=== PATIENT | female | born 1980 | race Hispanic/Latino ===

== ENCOUNTER 2017-11-25 15:28 | Inpatient (IN) | payer OTHER ==
[2017-11-25 17:38] LABS: ALT (SGPT) 28 U/L (8-55); AST (SGOT) 25 U/L (5-34); Alkaline Phosphatase 91 U/L (40-150); BUN (Urea Nitrogen) 20 mg/dL (7.0-18.7); Bilirubin, Total 0.4 mg/dL (0.2-1.2); Calc. Creatinine Clearance 0 mL/min (70-130); Calcium 7.7 mg/dL (7.8-10.44); Chloride 110 mmol/L (98-107); Estimated GFR-MDRD 68; Globulin 2.6 g/dL (2.4-3.5); Glucose 208 mg/dL (70-105); Potassium 4.3 mmol/L (3.5-5.1); Protein, Total 6.6 g/dL (6.0-8.3); Sodium 128 mmol/L (136-145)
[2017-11-25 17:39] LABS: Carbon Dioxide Less than 8 mmol/L (22-29)
[2017-11-25] MEDS ORDERED: HYDROcodone/Acetaminophen 5/325 mg Tablet PO PRN (18:04)
[2017-11-25] MEDS ORDERED: Sodium Chloride 0.9% 1,000 ML IV PRN ×4 (18:04)
[2017-11-25] MEDS ORDERED: Guaifenesin DM 100-10/5 ML UDCUP PO PRN (18:04)
[2017-11-25] MEDS ORDERED: NS 0.9% w/ 20 MEQ KCL 1,000 ML IV PRN ×2 (18:04)
[2017-11-25] MEDS ORDERED: D5 1/2 NS w/20 mEq KCL 1,000 ML ONE (18:04)
[2017-11-25] MEDS ORDERED: Bisacodyl 5 MG TAB PO PRN (18:04)
[2017-11-25] MEDS ORDERED: CCU Electrolyte Replacement 1 EACH IVPB SCH (18:04)
[2017-11-25] MEDS ORDERED: Calcium Carbonate 500 MG ChewTAB PO PRN (18:04)
[2017-11-25] MEDS ORDERED: Dextrose 5 %-0.45 % NaCl 1,000 ML IV PRN (18:04)
[2017-11-25] MEDS ORDERED: Ondansetron HCl/PF 4 MG/2 ML Vial IVP PRN (18:04)
[2017-11-25] MEDS ORDERED: Senokot S 8.6-50 MG TAB PO PRN (18:04)
[2017-11-25] MEDS ORDERED: Bisacodyl 10 MG SUPP PR PRN (18:04)
[2017-11-25] MEDS ORDERED: Magnesium Oxide 400 MG TAB PO PRN ×2 (18:18)
[2017-11-25] MEDS ORDERED: Magnesium 2 GM/NS 0.9% 100 ML 2 GM in Premix Bag 1 BAG IVPB PRN (18:18)
[2017-11-25] MEDS ORDERED: Potassium Chloride 20 MEQ TAB PO PRN (18:18)
[2017-11-25] MEDS ORDERED: CCU ELECTROLYTE REPLACEMENT PROTOCOL FS PRN (18:18)
[2017-11-25] MEDS ORDERED: Potassium Phosphate 12 MMOL in Sodium Chloride 0.9% 250 ML 250 ML IV PRN (18:18)
[2017-11-25] MEDS ORDERED: Potassium Phosphate 15 MMOL in Sodium Chloride 0.9% 250 ML 250 ML IV PRN (18:18)
[2017-11-25] MEDS ORDERED: Potassium Chloride 40 MEQ in Sodium Chloride 0.9% 250 ML 250 ML IVPB PRN (18:18)
[2017-11-25] MEDS ORDERED: Potassium Chloride 40 MEQ in Premix Bag 1 BAG IVPB PRN (18:18)
[2017-11-25] MEDS ORDERED: Potassium Phosphate 9 MMOL in Sodium Chloride 0.9% 100 ML IVPB PRN (18:18)
[2017-11-25 18:33] LABS: BHCG - Serum Negative (NEGATIVE); Pregs Control Background? CLEAR/WHITE (CLR/WHITE); Pregs Control Bar Appear? YES (CONTROL BAR)
[2017-11-25] MEDS ORDERED: PROVENTIL INHALER 6.7 G (200 INHALATIONS) INH PRN (18:52)
--- NOTE | 2017-11-25 19:31 | HP ---
DATE OF ADMISSION: 11/25/2017 PRIMARY CARE PHYSICIAN: Jaxon Centeno MD CHIEF COMPLAINT: Nausea, vomiting, dehydration. HISTORY OF PRESENT ILLNESS: Ms. Harris is a 37-year-old [facility] national, who presented to the ER with above-mentioned complaint. History is mainly obtained by the patient herself and electronic ia dical records have been reviewed. Case has been discussed with admitting ER physician. Ms. Harris reports that she has diabetes type 1 which is insulin-dependent and she is very compliant with her medications. For the last few days, she has been eating out and she has been having vomiti ng for the last 2-3 days. It did subside somewhat yesterday, but this morning she again vomited 3 ti mes. She does notice that she is very dehydrated and has been having excessive thirst and polyuria. She presented to [facility] for evaluation and was found to have evidence of diabeti c ketoacidosis and was transferred to our emergency room for further workup. She has received IV flu ids and has been started on insulin drip as per the ER report. The patient reports no history of similar symptoms in the past. She reports that she has never been diagnosed with her hospitalized with diabetic ketoacidosis. In the emergency room, her sodium is 128 , bicarbonate less than 8 and very high anion gap with a blood sugar of 208. Beta hydroxybutyrate le megan at 6.01. She will be admitted to [facility] for diabetic ketoacidosis. PAST MEDICAL HISTORY: Diabetes mellitus type 1 and asthma. PAST SURGICAL HISTORY: Sinus surgery. PSYCHIATRIC: None. 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 No history of drug, tobacco or alcohol abuse. FAMILY HISTORY: Diabetes mellitus in her grandmother. ALLERGIES: No known medication allergies. CURRENT MEDICATIONS: Levemir and Humulin, unknown dosages and Symbicort b.i.d. REVIEW OF SYSTEMS: A 12-point review of systems is done. It is negative except for those mentioned in the history and physical. LABORATORY DATA: Sodium 128, chloride 110, bicarbonate less than 8, BUN 20, creatinine 0.93, blood s ugar 208. Serum test negative. Beta hydroxybutyrate 6.01. PHYSICAL EXAMINATION: VITAL SIGNS: Stable. Heart rate 113. GENERAL: No acute distress, awake, alert, oriented x3. The patient does have some halting speech, b ut I think it is likely due to the language barrier. She does speak Japanese proficiently albeit a li ttle bit slow. HEENT: Mucous membranes are slightly dry. No oropharyngeal exudate or erythema. Head is normocepha lic, atraumatic. Pupils equal, reactive to light and accommodation. Extraocular movement intact. NECK: Supple without any lymphadenopathy, JVD or bruit. CHEST: Clear to auscultation without any wheezing, rales or rhonchi. Rate and rhythm is regular wit hout any murmur, rubs or gallops. ABDOMEN: Soft, nontender, nondistended with positive bowel sounds. EXTREMITIES: Free of any cyanosis, clubbing, or edema. NEUROLOGIC: Nonfocal. SKIN: Free of any rashes or bruises. Feels warm and dry to touch. IMPRESSION AND PLAN: 1. Diabetic ketoacidosis. The patient will be admitted to IMCU on DKA protocol with a q.4 hours BMP checks and insulin drip, IV fluids per the DKA protocol and a repeat beta hydroxybutyrate. She will be n.p.o. for now. She will be monitored clinically on telemetry unit as she is tachycardic. No cl ear evidence to suggest any infection other than possible viral gastroenteritis for now. 2. Diabetes mellitus type 1. We will restart her home medications when she is out of the DKA and ab le to take oral intake. Continue Accu-Cheks q.1 hour as long as she is on DKA protocol. 3. Deep venous thrombosis and gastrointestinal prophylaxis. 4. Walking program. 5. We will consult dietitian for education about diabetes control. DISPOSITION: Ms. Harris is currently being admitted to the hospital for diabetic ketoacidosis. Est imated length of stay at this time is at least 2-3 midnights. Further management will depend upon he r clinical course.
[2017-11-25 20:02] LABS: Magnesium 1.7 mg/dL (1.6-2.6)
[2017-11-25 20:04] LABS: BUN (Urea Nitrogen) 18 mg/dL (7.0-18.7); Calc. Creatinine Clearance 0 mL/min (70-130); Calcium 7.7 mg/dL (7.8-10.44); Chloride 109 mmol/L (98-107); Estimated GFR-MDRD 66; Glucose 239 mg/dL (70-105); Potassium 4.4 mmol/L (3.5-5.1); Sodium 126 mmol/L (136-145)
[2017-11-25 20:07] LABS: Carbon Dioxide Less than 8 mmol/L (22-29); Phosphorus 1.4 mg/dL (2.3-4.7)
[2017-11-25 23:10] LABS: Anion Gap 10 mmol/L (10-20); BUN (Urea Nitrogen) 17 mg/dL (7.0-18.7); Calc. Creatinine Clearance 61 mL/min (70-130); Calcium 8.2 mg/dL (7.8-10.44); Carbon Dioxide 10 mmol/L (22-29); Chloride 110 mmol/L (98-107); Estimated GFR-MDRD 61; Glucose 299 mg/dL (70-105); Sodium 126 mmol/L (136-145)
[2017-11-25] MEDS: D5 1/2 NS w/20 mEq KCL 1,000 ML IV PRN (23:39)
[2017-11-25] MEDS: Acetaminophen 325 MG TAB PO PRN (23:55)
[2017-11-25] MEDS: Famotidine/PF 20 mg/2ml Vial SLOW IVP SCH (23:55)
[2017-11-26] MEDS: D5 1/2 NS w/20 mEq KCL 1,000 ML IV PRN ×2 (03:25→06:52)
[2017-11-26] MEDS: Acetaminophen 325 MG TAB PO PRN ×2 (05:16→20:35)
[2017-11-26 05:59] LABS: Hemoglobin 12.1 g/dL (12.0-16.0); Mean Corpuscular HGB CONC 33.5 g/dL (32.0-36.0); Mean Corpuscular Hemoglobin 32.6 pg (27.0-31.0); Mean Corpuscular Volume 97.3 fL (78.0-98.0); Mean Platelet Volume 8.5 fL (7.4-10.4); Platelet Count 142 thou/uL (130-400); RBC Distribution Width 10.7 % (11.5-14.5); Red Blood Cell (RBC) Count 3.72 mill/uL (4.20-5.40); White Blood Cell (WBC) Count 8.3 thou/uL (4.8-10.8)
[2017-11-26 06:11] LABS: Phosphorus Less than 1.0 mg/dL (2.3-4.7)
[2017-11-26 06:34] LABS: Anion Gap 9 mmol/L (10-20); BUN (Urea Nitrogen) 13 mg/dL (7.0-18.7); Calc. Creatinine Clearance 80 mL/min (70-130); Calcium 7.8 mg/dL (7.8-10.44); Chloride 116 mmol/L (98-107); Estimated GFR-MDRD 78; Glucose 235 mg/dL (70-105); Potassium 3.7 mmol/L (3.5-5.1); Sodium 130 mmol/L (136-145)
[2017-11-26 06:37] LABS: Carbon Dioxide 9 mmol/L (22-29)
[2017-11-26] MEDS: Mometasone/Formoterol 120 PUFF INHALER INH SCH ×2 (07:27→18:42)
[2017-11-26] MEDS ORDERED: Dextrose 50% Abboject 50 ML SYRINGE SLOW IVP PRN (08:23)
[2017-11-26] MEDS ORDERED: Dextrose 5% in Water 1,000 ML IV PRN (08:23)
[2017-11-26] MEDS ORDERED: HumaLOG 300 UNITS/3 ML VIAL SC PRN ×2 (08:23)
[2017-11-26] MEDS ORDERED: Insulin Glargine 10 UNITS in Pre-Filled Syringe 1 EACH SC SCH (09:15)
[2017-11-26] MEDS ORDERED: Sodium Chloride 0.45% 1,000 ML IV SCH (10:45)
--- NOTE | 2017-11-26 11:49 | CON ---
DATE OF CONSULTATION: 11/26/2017 SERVICE: Pulmonary Medicine. REASON FOR CONSULTATION: IMCU patient. HISTORY OF PRESENT ILLNESS: The patient is a 37-year-old female with past medical history s ignificant for diabetes. She started having nausea and vomiting on and stopped taking her i nsulin. She had nausea and vomiting for a period of about 2 days. She took some insulin, but at richa t point was feeling very bad. She started having resurgence of nausea and vomiting yesterday, which prompted her presentation to the emergency department. She has multiple somatic complaints. She frankiln ts everywhere that you touch her including the legs, thighs, arms, and chest. She denies having any fevers. She is not short-winded and denies having a cough, but she did clear her throat multiple ivy es during this encounter. Otherwise, there has been no interval change to her condition. PAST MEDICAL HISTORY: 1. Type 1 diabetes mellitus. 2. Asthma. PAST SURGICAL HISTORY: Sinus surgery. SOCIAL HISTORY: Negative for alcohol, tobacco, or illicit drug use. She lives with her sister and w orks with a [employer]. FAMILY HISTORY: Noncontributory. ALLERGIES: No known drug allergies. MEDICATIONS: The list of her inpatient medications were reviewed and heavily modified. REVIEW OF SYSTEMS: General, head, ears, eyes, nose, throat, cardiovascular, respiratory, GI, , mus culoskeletal, neurologic, and skin is negative except as mentioned in the HPI. PHYSICAL EXAMINATION: VITAL SIGNS: Afebrile, pulse 88, blood pressure 110/70, respirations 16, saturation 100% on room air . GENERAL: The patient is awake, alert, in no apparent distress. LUNGS: Excellent air entry with no prolonged expiratory phase, wheezing, rhonchi, or crackles presen t. HEART: Normal rate, regular. ABDOMEN: Soft, nontender, nondistended. Bowel sounds are positive. MUSCULOSKELETAL: No cyanosis or clubbing. She is diffusely tender throughout all muscle groups. NEUROLOGIC: Grossly nonfocal. LABORATORY DATA: WBC 8.3, hemoglobin 12.1, platelets 142,000. Blood sugar ranges from 224-137. Mos t recent basic metabolic profile demonstrates a chloride of 116, sodium 130, anion gap 9, bicarbonate 9, basic metabolic profile is essentially unremarkable otherwise. Her creatinine is 0.83 and downtr ending. Magnesium is unremarkable. Phosphorus is less than the assay limit of 1.0. ASSESSMENT: 1. Diabetic ketoacidosis, improving. 2. Asthma. 3. Hypophosphatemia. 4. Recent gastroenteritis, DISCUSSION AND PLAN: I will continue to watch the patient very closely. Now that her gap is closed, she is actually asking for food. We will go ahead and feed her. We will give her subcutaneous dose of insulin at this time and recheck her chemistries. If they are okay, we will switch her off the d rip on to a subcu medication, but she will need to remain in the hospital for the next 24 hours.
[2017-11-26 12:01] LABS: Anion Gap 9 mmol/L (10-20); BUN (Urea Nitrogen) 10 mg/dL (7.0-18.7); Calc. Creatinine Clearance 93 mL/min (70-130); Calcium 7.6 mg/dL (7.8-10.44); Carbon Dioxide 12 mmol/L (22-29); Chloride 114 mmol/L (98-107); Estimated GFR-MDRD Greater than 90; Glucose 157 mg/dL (70-105); Magnesium 2.2 mg/dL (1.6-2.6); Potassium 3.3 mmol/L (3.5-5.1); Sodium 132 mmol/L (136-145)
[2017-11-26 12:06] LABS: Phosphorus Less than 1.0 mg/dL (2.3-4.7)
[2017-11-26 12:34] VITALS: BMI 21.7
[2017-11-26] MEDS ORDERED: Potassium Chloride 20 MEQ TAB PO SCH (15:15)
--- NOTE | 2017-11-26 15:15 | PDOC.PN ---
- Subjective Encounter Start Date: 11/26/17 Encounter Start Time: 15:13 Subjective: feels better but achy all over but wants to go home today - Objective MAR Reviewed: Yes Vital Signs & Weight: Vital Signs (12 hours) Temp Pulse Resp BP Pulse Ox 11/26/17 10:54 98.6 F 88 16 110/70 100 11/26/17 07:27 103 H 16 95 11/26/17 07:22 98.5 F 98 18 106/66 100 Weight Admit Weight 111 lb 15.917 oz Weight 119 lb 1.6 oz I&O: 11/25/17 11/26/17 11/27/17 06:59 06:59 06:59 Intake Total 2667 Output Total 2500 1600 Balance 167 -1600 Result Diagrams: 11/26/17 04:53 11/26/17 11:27 Additional Labs: Accuchecks 11/26/17 11/26/17 11/26/17 10:32 09:11 08:00 POC Glucose 137 H 161 H 156 H 11/26/17 11/26/17 11/26/17 07:05 05:59 05:14 POC Glucose 144 H 188 H 224 H 11/26/17 11/26/17 11/26/17 04:06 02:39 01:08 POC Glucose 240 H 243 H 290 H 11/26/17 11/25/17 11/25/17 00:08 23:02 22:06 POC Glucose 258 H 290 H 253 H 11/25/17 11/25/17 11/25/17 21:07 20:02 17:46 POC Glucose 257 H 241 H 183 H 11/25/17 16:32 POC Glucose 205 H Phys Exam - Physical Examination Constitutional: NAD HEENT: PERRLA, moist MMs, sclera anicteric, oral pharynx no lesions Neck: no nodes, no JVD, supple, full ROM Respiratory: no wheezing, no rales, no rhonchi, clear to auscultation bilateral Cardiovascular: RRR, no significant murmur, no rub Gastrointestinal: soft, non-tender, no distention, positive bowel sounds Musculoskeletal: no edema, pulses present Neurological: non-focal, normal sensation, moves all 4 limbs Psychiatric: normal affect, A&O x 3 Skin: no rash Dx/Plan (1) DKA, type 1 Code(s): E10.10 - TYPE 1 DIABETES MELLITUS WITH KETOACIDOSIS WITHOUT COMA Status: Acute (2) Hypokalemia Code(s): E87.6 - HYPOKALEMIA Status: Acute (3) Hypophosphatemia Code(s): E83.39 - OTHER DISORDERS OF PHOSPHORUS METABOLISM Status: Acute (4) DM type 1 (diabetes mellitus, type 1) Status: Chronic - Plan out of bed/ambulate, DVT proph w/SCDs AG closed.Still acidotic though -: Insulin drip turned off 1 hr after levemir.ISS started.diet started- -: cont NS w KCL. -: replace and recheck lytes. -: not stable for DC today * . Review of Systems - Review of Systems Constitutional: weakness, malaise. negative: fever, chills, sweats, other ENT: negative: Ear Pain, Ear Discharge, Nose Pain, Nose Discharge, Nose Congestion, Mouth Pain, Mouth Swelling, Throat Pain, Throat Swelling, Other Respiratory: negative: Cough, Dry, Shortness of Breath, Hemoptysis, SOB with Excertion, Pleuritic Pain, Sputum, Wheezing Cardiovascular: negative: chest pain, palpitations, orthopnea, paroxysmal nocturnal dyspnea, edema, light headedness, other Gastrointestinal: negative: Nausea, Vomiting, Abdominal Pain, Diarrhea, Constipation, Melena, Hematochezia, Other Genitourinary: negative: Dysuria, Frequency, Incontinence, Hematuria, Retention , Other Musculoskeletal: Neck Pain, Shoulder Pain, Arm Pain, Back Pain, Leg Pain. negative: Hand Pain, Foot Pain, Other Skin: negative: Rash, Lesions, Kristofer, Bruising, Other Neurological: negative: Weakness, Numbness, Incoordination, Change in Speech, Confusion, Seizures, Other - Medications/Allergies Allergies/Adverse Reactions: Allergies Allergy/AdvReac Type Severity Reaction Status Date / Time No Allergy Information Allergy Verified 11/25/17 23:16 Available Medications: Current Medications Acetaminophen (Tylenol) 650 mg PO Q4H PRN PRN Reason: Headache/Fever/Mild Pain (1-3) Last Admin: 11/26/17 05:16 Dose: 650 mg Albuterol Sulfate (Proventil Hfa) 1 puff INH QIDPRN PRN PRN Reason: wheezing Albuterol/Ipratropium (Duoneb) 3 ml NEB [id number] PRN PRN Reason: SOB &/or Wheezing Last Admin: 11/25/17 22:50 Dose: 3 ml Bisacodyl (Dulcolax) 10 mg PO DAILYPRN PRN PRN Reason: Constipation Bisacodyl (Dulcolax) 10 mg IN DAILYPRN PRN PRN Reason: Constipation Calcium Carbonate (Tums) 1,000 mg PO Q4H PRN PRN Reason: Heartburn or Indigestion Dextrose/Water (Dextrose 50%) 25 gm SLOW IVP PRN PRN PRN Reason: Hypoglycemia Enoxaparin Sodium (Lovenox) 40 mg SC 0900 TESFAYE Glucagon (Glucagon) 1 mg IM PRN PRN PRN Reason: Hypoglycemia Insulin Human Regular 100 (units/ Sodium Chloride) 101 mls @ 0 mls/hr IVPB INF TESFAYE; Protocol Last Admin: 11/26/17 03:24 Dose: 101 mls Dextrose/Water (D5w) 1,000 mls @ 0 mls/hr IV .Q0M PRN PRN Reason: Hypoglycemia Insulin Glargine 10 units/ (Miscellaneous Medication) 0.1 mls @ 0 mls/hr SC QAM TESFAYE Sodium Chloride (1/2 Normal Saline) 1,000 mls @ 75 mls/hr IV .[id number] TESFAYE Insulin Human Lispro (Humalog) 0 units SC .MODERATE SLIDING SC PRN PRN Reason: Moderate Correctional Scale Insulin Human Lispro (Humalog) 0 units SC .BEDTIME SLIDING SC PRN PRN Reason: Bedtime Correctional Scale Mometasone Furoate/Formoterol Fumar (Dulera 100 Mcg/5 Mcg Inhaler) 1 puff INH BID-RT [facility] Last Admin: 11/26/17 07:27 Dose: 1 puff Montelukast Sodium (Singulair) 10 mg PO HS TESFAYE Ondansetron HCl (Zofran) 4 mg IVP Q6H PRN PRN Reason: Nausea/Vomiting Potassium Chloride (K-Dur) 40 meq PO ONE TESFAYE Senna/Docusate Sodium (Senokot S) 2 tab PO BID PRN PRN Reason: Constipation Sodium Chloride (Flush - Normal Saline) 10 ml IVF Q12HR [facility] Last Admin: 11/26/17 10:37 Dose: 10 ml Sodium Chloride (Flush - Normal Saline) 10 ml IVF PRN PRN PRN Reason: Saline Flush
[2017-11-26] MEDS ORDERED: 1/2 NS w/KCL 20 mEq 1,000 ML IV SCH (15:30)
[2017-11-26] MEDS: Enoxaparin Sodium 40 MG/0.4 ML SYRINGE SC SCH (15:35)
[2017-11-26] MEDS: Famotidine/PF 20 mg/2ml Vial SLOW IVP SCH (15:44)
[2017-11-26] MEDS: NS 0.9% w/ 20 MEQ KCL 1,000 ML/1,000 ML BAG IV SCH (16:36)
[2017-11-26] MEDS ORDERED: Potassium Phosphate 30 MMOL in Sodium Chloride 0.9% 500 ML IVPB SCH (20:15)
[2017-11-26] MEDS ORDERED: Montelukast Sodium 10 mg Tablet PO SCH (21:00)
[2017-11-27] MEDS: Acetaminophen 325 MG TAB PO PRN (05:33)
[2017-11-27] MEDS: NS 0.9% w/ 20 MEQ KCL 1,000 ML/1,000 ML BAG IV SCH (05:34)
[2017-11-27] MEDS ORDERED: Insulin Glargine 10 UNITS in Pre-Filled Syringe 1 EACH SC SCH (09:00)
[2017-11-27 09:23] LABS: Anion Gap 9 mmol/L (10-20); BUN (Urea Nitrogen) 6 mg/dL (7.0-18.7); Calc. Creatinine Clearance 117 mL/min (70-130); Calcium 7.5 mg/dL (7.8-10.44); Carbon Dioxide 20 mmol/L (22-29); Chloride 112 mmol/L (98-107); Estimated GFR-MDRD Greater than 90; Glucose 183 mg/dL (70-105); Phosphorus 1.4 mg/dL (2.3-4.7); Potassium 3.3 mmol/L (3.5-5.1); Sodium 138 mmol/L (136-145)
[2017-11-27] MEDS ORDERED: Potassium Phosphate 12 MMOL in Sodium Chloride 0.9% 100 ML IVPB SCH (09:45)
[2017-11-27] MEDS: Enoxaparin Sodium 40 MG/0.4 ML SYRINGE SC SCH (09:48)
[2017-11-27] MEDS: Mometasone/Formoterol 120 PUFF INHALER INH SCH (11:06)
--- NOTE | 2017-11-27 11:15 | PRG ---
DATE OF SERVICE: 11/27/2017 SERVICE: Pulmonary Medicine INTERVAL HISTORY: The patient is doing outstanding from a respiratory standpoint. She indicates richa t her discomforts have improved dramatically. She denies any fevers or chills. There were no overni ght events and she is requesting discharge from the hospital today. PHYSICAL EXAMINATION: VITAL SIGNS: Afebrile currently with T-max 99.4, pulse 97, blood pressure 106/68, respirations 12, s aturation 99% on room air. GENERAL: The patient is awake, alert, in no apparent distress. LUNGS: Excellent air entry. There is no prolonged expiratory phase or wheezing present. HEART: Normal rate, regular. ABDOMEN: Soft, nontender, nondistended. Bowel sounds are positive. MUSCULOSKELETAL: No cyanosis or clubbing. There is no pitting in the bilateral lower extremities. NEUROLOGIC: Grossly nonfocal. LABORATORY DATA: Sodium 138, potassium 3.3, chloride 112, bicarbonate 20, and drastically improved, anion gap remains low. Creatinine is down trending 0.57. Calcium 7.5, phosphorus 1.4. Magnesium 2. 2. Respiratory virus panel is negative. ASSESSMENT: 1. Diabetic ketoacidosis. 2. Type 1 diabetes mellitus. 3. Asthma without acute exacerbation. 4. Hypophosphatemia, improving. 5. Non-anion gap metabolic acidosis, resolving. DISCUSSION AND PLAN: The patient has made a profound improvement. She has been off of IV insulin fo r over 24 hours. Her electrolyte abnormalities are improving, but most of this is likely in effect o f IV fluids. At this point, she is back to baseline and can be transitioned out of the hospital. If she remains in the IMCU, Pulmonary Critical Care will continue to follow, but my suspicion is she is going home today, which I think is perfectly reasonable.
--- NOTE | 2017-11-27 14:02 | DIS ---
DATE OF ADMISSION: 11/25/2017 DATE OF DISCHARGE: 11/27/2017 CONDITION AT THE TIME OF DISCHARGE: Stable and improved. DISCHARGE DIAGNOSES: 1. Diabetic ketoacidosis. 2. Diabetes mellitus type 1. 3. Asthma without acute exacerbation. 4. Hypokalemia and hypophosphatemia secondary to diabetic ketoacidosis, resolving. 5. Non-anion gap metabolic acidosis, resolving. DISCHARGE MEDICATIONS: Remain the same as admission medication. No changes were made as follows; Si ngulair 10 mg daily, Levemir 25 units in the morning, Humalog sliding scale, and Symbicort 160/4.5 on e puff b.i.d. INHOUSE CONSULTATIONS: Pulmonary or Critical Care Medicine while the patient was in the [facility]. Dr. Tara basilio has seen the patient. HISTORY OF PRESENTING ILLNESS: Ms. Harris is a 37-year-old female with known history of diabetes ty pe 1, who presented to the emergency room with complaints of abdominal pain, nausea, and was found to be in DKA. She is compliant with her medications and this is her first episode. Please see admissi on H&P for further details. HOSPITAL COURSE: The patient was admitted to [facility] on DKA protocol and her DKA resolved quickly, but the acidosis persisted requiring more IV fluid infusion. She was monitored for 1 more day and as of this morning, her acidosis is significantly improved. She is able to eat and her blood sugars are st able. She was seen by Dr. Henriquez from critical care while she was in [facility] and she has been cleared for discharge from his perspective this morning as well. The patient was seen and examined prior to discharge. PHYSICAL EXAMINATION: VITAL SIGNS: This morning, temperature 99.2, pulse of 87, respirations 15, saturating 100% on room a ir, blood pressure 108/76. GENERAL APPEARANCE: No acute distress. CHEST: Clear to auscultation bilaterally. Rate and rhythm is regular. LABORATORY DATA: Sodium 138, which was 128 upon presentation, potassium 3.3 which was supplemented w ith prior to discharge. Phosphorus 1.4, which was supplemented prior to discharge. Magnesium normal at 2.0, bicarb 20, which was less than 8 upon presentation. Anion gap is 9 which was too high to be calculated upon presentation with blood sugar on the time of discharge 186. PRIMARY CARE PHYSICIAN: Jaxon Centeno M.D. She is instructed to follow up with Dr. Centeno in 3 days of time and get outpatient blood work done for BMP and phosphorus prior to her visit. Discharge plan was discussed with the patient and she verbalizes understanding.
[2017-11-27 15:36] VITALS: BP 97/67; TEMP 98.5
== END 2017-11-27 16:15 | disposition home or self-care (01) | DRG 638 ==
LOC: ERS 15:28 → IMCU/EMU 21:01
PROVIDERS: ADMIT Internal Medicine; ATTEND Internal Medicine
DX: E10.10 Type 1 diabetes mellitus with ketoacidosis without coma (principal); E87.2 Acidosis; E86.0 Dehydration; J45.909 Unspecified asthma, uncomplicated; Z79.4 Long term (current) use of insulin; E83.39 Other disorders of phosphorus metabolism; E87.6 Hypokalemia
CPT/HCPCS: 36415; 36416; 80048; 80053; 82010; 82550; 83735; 84100; 84703; 85027; 85652; 87633; 94640; 96360; 96361; J1650; J1815; J3475; J7050; J7620; S0028

== ENCOUNTER 2020-02-16 07:08 | Outpatient (CLI) | payer OTHER ==
--- NOTE | 2020-02-16 07:33 | ULT ---
Soft tissue sonogram anterior abdominal wall HISTORY: Palpable mass. FINDINGS: Sonographic evaluation anterior abdominal wall was performed in the region of palpable conc angelita. Muscle bundles are well visualized. No focal mass or fluid collection. No evidence of anterior abdominal wall hernia. Imaging was performed in neutral and flexed positioning. IMPRESSION : No abnormalities are demonstrated sonographically.
== END 2020-02-16 07:09 | disposition home or self-care (01) ==
LOC: BICULT 07:08
PROVIDERS: ATTEND Internal Medicine Endocrinology, Diabetes & Metabolism
DX: R19.06 Epigastric swelling, mass or lump (principal); R52 Pain, unspecified
CPT/HCPCS: 76705